=== PATIENT | male | born 1965 | race Caucasian/White ===

== ENCOUNTER 2017-02-27 10:51 | Inpatient (IN) ==
[2017-02-27] MEDS ORDERED: Ketorolac 30 MG/ML VIAL IM STA (11:19)
[2017-02-27] MEDS ORDERED: Orphenadrine 60 MG/2 ML VIAL IM STA (11:19)
[2017-02-27] MEDS ORDERED: cloNIDine HCl 0.1 MG TABLET PO STA (11:20)
--- NOTE | 2017-02-27 11:31 | Emergency Department Note ---
Disposition Clinical Impression: Hypertensive emergency Back pain Qualifiers: Back pain location: back pain in unspecified location Chronicity: chronic Back pain laterality: bilateral Qualified Code(s): M54.9 - Dorsalgia, unspecified; G89.29 - Other chronic pain Disposition: Admitted As Inpatient Condition: Good Back Pain HPI - General Chief Complaint: ED Back Pain/Injury Stated Complaint: HTN/back pain Time Seen by Provider: 02/27/17 11:02 Source: family Limitations: no limitations Nursing Notes Reviewed: Yes Vital Signs Reviewed: Yes - History of Present Illness HPI Narrative: Patient here for evaluation of hypertension and back pain. Patient is a 51-year -old male who has previous history of chronic knee pain and back pain that had been seen by pain management and orthopedic colleagues. Patient quit seeing them approximately a year to year and a half ago secondary to a lapse in insurance. Patient has been having increasing pain since this time. He has not been taking any of his previous medications which include blood pressure medications. He is with who states that he spends most of his day at home and is not able to move or get around secondary to all the pain that he is in area and they recently got insurance and went to get an outpatient workup today where he was found to have a blood pressure over 209. He is severely limited by his pain but has not taken any at home. Medications including any type of Tylenol or NSAIDs. He states these do not work. Quit taking them. He states that he has no history of COPD, heart disease, kidney disease, diabetes or other. At this time they have imaging request from the provider that had transferred the patient and will be resuming more long-term management. At this time we will go ahead and complete these in the emergency department as you will rule out hypertensive emergency and expediate has workup. Back pain is chronic in nature located more in the mid thoracic region. Patient has paraspinal tenderness to the right lower lumbar region. Radiation of pain down into the left leg. Patient denies any changes or abnormal bowel or bladder function. No saddle anesthesia. No fevers. Worse with walking. Better with rest. Patient states that getting up and the amount of movement he has had today will cause him to have to lay in bed for the next several days to recover. - Related Data Home Medications Medication Instructions Recorded Confirmed No Known Home Drugs 02/27/17 02/27/17 Allergies Allergy/AdvReac Type Severity Reaction Status Date / Time No Known Allergies Allergy Verified 09/15/15 09:46 Review of Systems: CONSTITUTIONAL: No weight loss, fever, chills, weakness or fatigue. HEENT: Eyes: No visual changes. Ears, Nose, Throat: No hearing loss, difficulty talking or unable to swallow. SKIN: No rash or itching. CARDIOVASCULAR: Hypertension No chest pain, chest pressure or chest discomfort. No palpitations or edema. RESPIRATORY: No shortness of breath, cough or sputum. GASTROINTESTINAL: No anorexia, nausea, vomiting or diarrhea. No abdominal pain or blood. GENITOURINARY: No burning on urination or hematuria. NEUROLOGICAL: No headache, dizziness, syncope, paralysis, ataxia, numbness or tingling in the extremities. No change in bowel or bladder control. MUSCULOSKELETAL: Back pain, knee pain, elbow pain. Past Medical History - Past Medical History Medical history: Reports: COPD, hypertension, other - Social History Smoking Status: Current every day smoker Alcohol use: Reports: occasionally Drug use: Reports: none Physical Exam General appearance: NAD, conversant Eyes: anicteric sclerae, moist conjunctivae; PERRL HENT: Atraumatic; oropharynx clear with moist mucous membranes and no mucosal ulcerations Neck: Normal inspection; Trachea midline; FROM, supple Lungs: CTA, with normal respiratory effort and no intercostal retractions CV: RRR, no MRGs Abdomen: Soft, non-tender; no rebound or gaurding Extremities: No peripheral edema or extremity lymphadenopathy Skin: Normal temperature; no rash, ulcers or lesions Psych: Appropriate mood and affect Neuro: alert and oriented to person, place and time Musculoskeletal: Significant superficial tenderness to the mid thoracic and lower lumbar paraspinal muscles. Mario sign positive. Patient ambulated to the room. No sensory loss throughout the lower extremities. - General Limitations: no limitations General appearance: alert Course - Reevaluation(s) Reevaluation #1: Patient's troponin elevated. Repeat troponin drawn in order to possibly while the patient to go home. Repeat troponin is higher than the initial troponin. The patient will be admitted for hypertensive emergency. - Consultations Consultation #1: Discussed with Dr. Gross. Patient accepted for admission. Vital Signs Temperature 97.5 F L 02/27/17 10:57 Pulse Rate 100 02/27/17 10:57 Respiratory Rate 20 02/27/17 10:57 Blood Pressure 209/147 02/27/17 10:57 O2 Sat by Pulse Oximetry 95 02/27/17 10:57 Temperature 97.5 F L 02/27/17 10:57 Pulse Rate 79 02/27/17 16:10 Respiratory Rate 18 02/27/17 16:10 Blood Pressure 215/134 02/27/17 16:10 O2 Sat by Pulse Oximetry 96 02/27/17 16:21 Oxygen Delivery Oxygen Delivery Room Air Back Pain/Injury - Medical Records Medical records reviewed: Yes I reviewed the patient's medical records. - Lab Data Lab results reviewed: Yes I reviewed the patient's lab results. Result diagrams: 02/27/17 12:21 02/27/17 12:21 Lab Results 02/27/17 02/27/17 02/27/17 Range/Units 11:27 12:21 12:21 WBC 9.6 (4.3-11.1) K/mcL RBC 6.32 H (4.19-5.50) M/mcL Hgb 20.1 H (12.9-16.9) g/dL Hct 55.9 H (37.5-50.1) % MCV 88.4 (83.0-100.0) fL MCH 31.8 (28.0-33.3) pg MCHC 36.0 H (31.6-35.5) g/dL RDW 13.1 (11.5-14.5) % Plt Count 160 (140-400) K/mcL MPV 11.6 (9.4-12.4) fL Immature Gran % 0.4 (0-4) % Seg Neutrophils % 68.8 % Lymphocytes % 19.9 % Monocytes % 8.7 % Eosinophils % 1.3 % Basophils % 0.9 % Neutrophils # 6.6 (1.6-8.9) K/mcL Lymphocytes # 1.9 (0.6-4.6) K/mcL Monocytes # 0.8 (0.0-1.3) K/mcL Eosinophils # 0.1 (0.0-0.6) K/mcL Basophils # 0.1 (0.0-0.2) K/mcL Immature Plt Fraction 11.6 H (1.1-6.1) % Sodium (136-145) mEq/L Potassium (3.5-4.5) mEq/L Chloride (98-109) mEq/L Carbon Dioxide (19-29) mEq/L BUN (8-26) mg/dL Creatinine (0.72-1.25) mg/dL Est GFR ( Amer) (> 60) Est GFR (Non-Af Amer) (> 60) BUN/Creatinine Ratio (6-26) Glucose (70-99) mg/dL Calculated Osmolality (280-300) Uric Acid (3.5-7.2) mg/dL Calcium (8.6-10.8) mg/dL Total Bilirubin (0.2-1.2) mg/dL AST (5-34) Units/L ALT (0-55) Units/L Alkaline Phosphatase (38-126) Units/L Troponin I (0-0.03) ng/mL Serum Total Protein (6.0-8.3) g/dL Albumin (3.5-5.0) g/dL Globulin (2.4-3.5) g/dL Albumin/Globulin Ratio (1.1-2.2) Triglycerides (< 150) mg/dL Cholesterol (< 200) mg/dL LDL Cholesterol, Calc (0-99) mg/dL VLDL Cholesterol, Calc (< 31) mg/dL HDL Cholesterol (40-59) mg/dL Cholesterol/HDL Ratio (0-4.9) Vitamin B12 (213-816) pg/mL 25-OH Vitamin D Total 9 L (30-80) ng/mL Folate (7.0-31.4) ng/mL TSH (0.350-4.840) mcIU/mL Free T4 (0.70-1.48) ng/dl Urine Color Dark Yellow (Yellow) Urine Clarity Clear (Clear) Urine pH 5.5 (5.0-8.0) pH Units Ur Specific [place] 1.027 H (1.010-1.025) Urine Protein 100 H (Neg-Trace) mg/dL Urine Glucose (UA) Normal (Normal) mg/dL Urine Ketones Negative (Negative) mg/dL Urine Blood Small H (Negative) Urine Nitrite Negative (Negative) Urine Bilirubin Small H (Negative) Urine Urobilinogen Normal (Normal) mg/dL Ur Leukocyte Esterase Trace H (Negative) Urine Microscopic RBC 0-3 (0-3) per hpf Urine Microscopic WBC 3-5 H (0-3) per hpf Ur Squamous Epith Cells Many H (None-Few) per lpf Urine Bacteria None Seen (None-Few) per hpf Ur Culture Indicated? YES A (NO) 02/27/17 02/27/17 02/27/17 Range/Units 12:21 12:21 12:21 WBC (4.3-11.1) K/mcL RBC (4.19-5.50) M/mcL Hgb (12.9-16.9) g/dL Hct (37.5-50.1) % MCV (83.0-100.0) fL MCH (28.0-33.3) pg MCHC (31.6-35.5) g/dL RDW (11.5-14.5) % Plt Count (140-400) K/mcL MPV (9.4-12.4) fL Immature Gran % (0-4) % Seg Neutrophils % % Lymphocytes % % Monocytes % % Eosinophils % % Basophils % % Neutrophils # (1.6-8.9) K/mcL Lymphocytes # (0.6-4.6) K/mcL Monocytes # (0.0-1.3) K/mcL Eosinophils # (0.0-0.6) K/mcL Basophils # (0.0-0.2) K/mcL Immature Plt Fraction (1.1-6.1) % Sodium 137 (136-145) mEq/L Potassium 4.1 (3.5-4.5) mEq/L Chloride 103 (98-109) mEq/L Carbon Dioxide 25 (19-29) mEq/L BUN 16 (8-26) mg/dL Creatinine 1.37 H (0.72-1.25) mg/dL Est GFR ( Amer) > 60 (> 60) Est GFR (Non-Af Amer) 55 L (> 60) BUN/Creatinine Ratio 12 (6-26) Glucose 91 (70-99) mg/dL Calculated Osmolality 285 (280-300) Uric Acid 8.4 H (3.5-7.2) mg/dL Calcium 9.7 (8.6-10.8) mg/dL Total Bilirubin 1.4 H (0.2-1.2) mg/dL AST 27 (5-34) Units/L ALT 36 (0-55) Units/L Alkaline Phosphatase 89 (38-126) Units/L Troponin I 0.04 H* (0-0.03) ng/mL Serum Total Protein 7.7 (6.0-8.3) g/dL Albumin 4.1 (3.5-5.0) g/dL Globulin 3.6 H (2.4-3.5) g/dL Albumin/Globulin Ratio 1.1 (1.1-2.2) Triglycerides 184 H (< 150) mg/dL Cholesterol 232 H (< 200) mg/dL LDL Cholesterol, Calc 149 H (0-99) mg/dL VLDL Cholesterol, Calc 37 H (< 31) mg/dL HDL Cholesterol 46 (40-59) mg/dL Cholesterol/HDL Ratio 5.0 H (0-4.9) Vitamin B12 319 (213-816) pg/mL 25-OH Vitamin D Total (30-80) ng/mL Folate 7.6 (7.0-31.4) ng/mL TSH 1.423 (0.350-4.840) mcIU/mL Free T4 0.84 (0.70-1.48) ng/dl Urine Color (Yellow) Urine Clarity (Clear) Urine pH (5.0-8.0) pH Units Ur Specific [place] (1.010-1.025) Urine Protein (Neg-Trace) mg/dL Urine Glucose (UA) (Normal) mg/dL Urine Ketones (Negative) mg/dL Urine Blood (Negative) Urine Nitrite (Negative) Urine Bilirubin (Negative) Urine Urobilinogen (Normal) mg/dL Ur Leukocyte Esterase (Negative) Urine Microscopic RBC (0-3) per hpf Urine Microscopic WBC (0-3) per hpf Ur Squamous Epith Cells (None-Few) per lpf Urine Bacteria (None-Few) per hpf Ur Culture Indicated? (NO) 02/27/17 Range/Units 14:23 WBC (4.3-11.1) K/mcL RBC (4.19-5.50) M/mcL Hgb (12.9-16.9) g/dL Hct (37.5-50.1) % MCV (83.0-100.0) fL MCH (28.0-33.3) pg MCHC (31.6-35.5) g/dL RDW (11.5-14.5) % Plt Count (140-400) K/mcL MPV (9.4-12.4) fL Immature Gran % (0-4) % Seg Neutrophils % % Lymphocytes % % Monocytes % % Eosinophils % % Basophils % % Neutrophils # (1.6-8.9) K/mcL Lymphocytes # (0.6-4.6) K/mcL Monocytes # (0.0-1.3) K/mcL Eosinophils # (0.0-0.6) K/mcL Basophils # (0.0-0.2) K/mcL Immature Plt Fraction (1.1-6.1) % Sodium (136-145) mEq/L Potassium (3.5-4.5) mEq/L Chloride (98-109) mEq/L Carbon Dioxide (19-29) mEq/L BUN (8-26) mg/dL Creatinine (0.72-1.25) mg/dL Est GFR ( Amer) (> 60) Est GFR (Non-Af Amer) (> 60) BUN/Creatinine Ratio (6-26) Glucose (70-99) mg/dL Calculated Osmolality (280-300) Uric Acid (3.5-7.2) mg/dL Calcium (8.6-10.8) mg/dL Total Bilirubin (0.2-1.2) mg/dL AST (5-34) Units/L ALT (0-55) Units/L Alkaline Phosphatase (38-126) Units/L Troponin I 0.05 H* (0-0.03) ng/mL Serum Total Protein (6.0-8.3) g/dL Albumin (3.5-5.0) g/dL Globulin (2.4-3.5) g/dL Albumin/Globulin Ratio (1.1-2.2) Triglycerides (< 150) mg/dL Cholesterol (< 200) mg/dL LDL Cholesterol, Calc (0-99) mg/dL VLDL Cholesterol, Calc (< 31) mg/dL HDL Cholesterol (40-59) mg/dL Cholesterol/HDL Ratio (0-4.9) Vitamin B12 (213-816) pg/mL 25-OH Vitamin D Total (30-80) ng/mL Folate (7.0-31.4) ng/mL TSH (0.350-4.840) mcIU/mL Free T4 (0.70-1.48) ng/dl Urine Color (Yellow) Urine Clarity (Clear) Urine pH (5.0-8.0) pH Units Ur Specific [place] (1.010-1.025) Urine Protein (Neg-Trace) mg/dL Urine Glucose (UA) (Normal) mg/dL Urine Ketones (Negative) mg/dL Urine Blood (Negative) Urine Nitrite (Negative) Urine Bilirubin (Negative) Urine Urobilinogen (Normal) mg/dL Ur Leukocyte Esterase (Negative) Urine Microscopic RBC (0-3) per hpf Urine Microscopic WBC (0-3) per hpf Ur Squamous Epith Cells (None-Few) per lpf Urine Bacteria (None-Few) per hpf Ur Culture Indicated? (NO) - Radiology Data Radiology results reviewed: Yes I reviewed the patient's radiology results. - EKG Data EKG attestation: Yes I reviewed and interpreted this EKG. EKG results narrative: EKG shows sinus rhythm with ventricular rate of 90 bpm. NJ 180. Peak QRS 102. QTC 412. Patient has no significant ST elevations or depressions. Patient does have some T-wave changes to the anterior lateral leads. No previous EKG for comparison.
--- NOTE | 2017-02-27 11:36 | Emergency Department Note ---
START Narrative - START START: I examined this patient and my medical decision-making was reviewed with the TRIALS MANAGER/PA/Advanced Practice Nurse/Resident Physician. I agree with the documented findings, disposition and treatment plan as described except to the extent set forth below.
[2017-02-27 11:44] LABS: Bilirubin,Urine Small (Negative); Blood,Urine Small (Negative); Clarity,Urine Clear (Clear); Color,Urine Dark Yellow (Yellow); Glucose,Urine (UA) Normal (Normal); Ketones,Urine Negative (Negative); Leukocyte Esterase,Urine Trace (Negative); Nitrite,Urine Negative (Negative); PH,Urine 5.5 pH Units (5.0-8.0); Protein,Urine 100 mg/dL (Neg-Trace); Specific Gravity,Urine 1.027 (1.010-1.025); Urobilinogen,Urine Normal (Normal)
[2017-02-27 11:48] LABS: Bacteria,Urine None Seen per hpf (None-Few); RBC,Urine 0-3 per hpf (0-3); Squamous Epithelial Cell,Urine Many per lpf (None-Few)
[2017-02-27 12:32] LABS: Basophils # 0.1 K/mcL (0.0-0.2); Basophils % 0.9 %; Eosinophils # 0.1 K/mcL (0.0-0.6); Eosinophils % 1.3 %; Hemoglobin 20.1 g/dL (12.9-16.9); Immature Granulocytes % 0.4 % (0-4); Immature Platelets 11.6 % (1.1-6.1); Lymphocytes # 1.9 K/mcL (0.6-4.6); Lymphocytes % 19.9 %; Mean Corpuscular Hemoglobin 31.8 pg (28.0-33.3); Mean Corpuscular Volume 88.4 fL (83.0-100.0); Mean Platelet Volume 11.6 fL (9.4-12.4); Monocytes # 0.8 K/mcL (0.0-1.3); Monocytes % 8.7 %; Neutrophils # 6.6 K/mcL (1.6-8.9); Platelet Count 160 K/mcL (140-400); Red Blood Count 6.32 M/mcL (4.19-5.50); Red Cell Distribution Width 13.1 % (11.5-14.5); Segmented Neutrophils % 68.8 %
[2017-02-27 12:33] LABS: Hematocrit 55.9 % (37.5-50.1)
[2017-02-27 12:47] LABS: Alanine Aminotransferase 36 Units/L (0-55); Albumin 4.1 g/dL (3.5-5.0); Albumin/Globulin Ratio 1.1 (1.1-2.2); Alkaline Phosphatase 89 Units/L (38-126); Aspartate Amino Transferase 27 Units/L (5-34); BUN/Creatinine Ratio 12 (6-26); Bilirubin,Total 1.4 mg/dL (0.2-1.2); Blood Urea Nitrogen 16 mg/dL (8-26); Calcium 9.7 mg/dL (8.6-10.8); Carbon Dioxide 25 mEq/L (19-29); Chloride 103 mEq/L (98-109); Cholesterol 232 mg/dL (< 200); Globulin 3.6 g/dL (2.4-3.5); Glucose 91 mg/dL (70-99); HDL Cholesterol 46 mg/dL (40-59); LDL Cholesterol,Calculated 149 mg/dL (0-99); Osmolality,Calculated 285 (280-300); Potassium 4.1 mEq/L (3.5-4.5); Sodium 137 mEq/L (136-145); Total Protein 7.7 g/dL (6.0-8.3); Triglycerides 184 mg/dL (< 150); Uric Acid 8.4 mg/dL (3.5-7.2); eGFR For African Americans > 60 (> 60); eGFR For Non-African Americans 55 (> 60)
[2017-02-27 13:09] LABS: Thyroid Stimulating Hormone 1.423 mcIU/mL (0.350-4.840)
[2017-02-27] MEDS ORDERED: *HR* OxyCODONE/APAP 5/325 TABLET PO ONE (13:13)
[2017-02-27 13:22] LABS: Folate 7.6 ng/mL (7.0-31.4)
[2017-02-27] MEDS ORDERED: *HR* Labetalol 20 MG/4 ML SYRINGE IVP ONE (15:36)
[2017-02-27] MEDS ORDERED: *HR* HYDROmorphone (PF) 1 MG/ML SYRINGE IVP ONE (15:36)
[2017-02-27] MEDS ORDERED: Ondansetron 4 MG/2 ML VIAL IVP ONE (15:36)
[2017-02-27] MEDS ORDERED: *HR* HYDROmorphone (PF) 1 MG/ML SYRINGE IVP PRN (16:51)
[2017-02-27] MEDS ORDERED: Naloxone 0.4 MG/ML INJ IVP PRN (16:51)
[2017-02-27] MEDS ORDERED: Ondansetron 4 MG/2 ML VIAL IVP PRN (16:51)
[2017-02-27] MEDS ORDERED: Acetaminophen 325 MG TABLET PO PRN (16:51)
--- NOTE | 2017-02-27 16:59 | Internal Med History&Physical ---
Date of Encounter: 02/27/17 Time of Encounter: 16:56 Assessment and Plan (1) Hypertensive emergency Current visit: Yes Status: Acute Presenting BP of 209/147 At time of review BP 197-215/120-129 Patient is diaphoretic, clammy, in severe distress from back pain He received labetalol in the ER with no relief Evidence of ischemia possibly from demand with elevated troponin to 0.05, and ANNAMARIE Patient with EKG changes, unknown if theses are new as no prior EKGs to compare with Started patient on Nicardipine, titrate to SBP<150, DBP <80 Start po meds, and titrate with BP and Nicardipine drip IVF bolus 2L and obtain CT angio-rule out aortic dissection Patient is high risk of cardiopulmonary compromise, worsening renal failure, and He is full code (2) ANNAMARIE (acute kidney injury) Current visit: Yes Status: Acute Patient with no PCP visit for several years Obtain renal USS Give IVF hydration and monitor intake./output anticipate improvement with BP control (3) Elevated troponin Current visit: Yes Status: Acute Possibly from demand EKG with TWI in lateral leads, unknown if new Cycle troponins, give ASA, statin, BB obtain ECHO, Lipid panel Consult cardiology prn (4) Polycythemia Current visit: Yes Status: Acute Patient smkes 1.5 PPD Per his , he always wakes up gasping for air 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 Place patient on O2, give iVF and monitor closely (5) Tobacco abuse Current visit: Yes Status: Chronic Encourage cessation Already on NRT (6) Back pain Current visit: Yes Status: Acute Patient complains of central , thoracic pain, non-radiating, Lumbar CT with mild DJD, continue pain control Rule out aortic emergency Qualifiers: Back pain location: thoracic back pain Chronicity: unspecified Back pain laterality: midline Qualified Code(s): M54.6 - Pain in thoracic spine (7) SCARLET (obstructive sleep apnea) Current visit: Yes Status: Suspected CPAP at night (8) Morbid obesity with BMI of 45.0-49.9, adult Current visit: Yes Status: Chronic Encourage weight loss Internal Medicine - H&P: HPI Chief complaint: "I was sent here by my PCP" Admitted From: Home Plans for Post Hospital Care: Home History of present illness: Mr. Diehl is a 51 year old male seen at bedside with spouse States he was sent tot he ER by his PCP for uncontrolled blood pressure and back pain At my time of review, patient was diaphoretic , complaining of inter- scapular pain, cannot describe it, states it is sharp, non-radiating and 10/10. patient denies chest pain but is severely diaphortic and clammy, HR 88, BP: 197/ 129, O2 Sat ranged from 88-92%. , MAP 151. Patient had been ordered to be started on Nicardipine drip for HTN emergency , awaiting medication administration and bed placement Patient has hx of chronic back pain and HTN, smokes 1.5 packs of cigarette daily and as per his spouse, wakes up every night, gasping for air. He reports he has not had any medications in 3 years because he lost his insurance, he just recently obtained his insurance and decided to visit his PCP due to worsening back pain He denies chest pain at this time but reports he always has chest pain with minimal exertion, he is mostly bed bound when he begins to have the pain He denies fever or chills, no hx of trauma, he has not noticed any changes in his bowel or urinary habits No confusion, or focal weakness, no facial droop or speech deficits Patient was worked up in the ER and presented for admission Work up reveals polycythemia, Hb of 20, ANNAMARIE with Cr of 1.31, Uric acid 8.4, Bilirubinemia of 1.4, Troponin elevated at 0.05 EKG shows T-wave inversions with <1mm ST depression in aVL, V5 and V6. No prior EKGs to compare with Lumbar CT with DJD Patient has no chest X-ray ordered Patient will be admitted to SDU for hypertensive emergency, I will rule out an acute aortic emergency due to uncontrolled BP, hx of Tobacco abuse and severe interscapular pain with diaphoresis. Will give fluid hydration prior to CT angio. Patient is high risk due to Hypertensive emergency with demand ischemia, cannot rule out an [place] at this time, ANNAMARIE with risk of worsening renal failure , risk for cardiopulmonary compromise Past Med Surg Social Fam HX - Past Medical History Medical history: COPD, hypertension, other - Social History Smoking Status: Current every day smoker Alcohol use: occasionally Drug use: none Internal Medicine - H&P: Meds No Known Home Drugs 02/27/17 [History] Allergies No Known Allergies Allergy (Verified 09/15/15 09:46) All Systems PM: A 10-system review of systems was performed and is negative for pertinent findings except as documented above in the HPI. - Constitutional Constitutional: as per HPI - EENT Eyes: as per HPI Ears: as per HPI Nose, mouth and throat: as per HPI - Cardiovascular Cardiovascular ROS IM: as per HPI - Respiratory Respiratory: as per HPI - Gastrointestinal Gastrointestinal: as per HPI - Genitourinary Genitourinary ROS male: as per HPI - Musculoskeletal Musculoskeletal ROS IM: as per HPI - Integumentary Integumentary IM: as per HPI - Neurological Neurological ROS: as per HPI - Hematologic/Lymphatic Hematologic/Lymphatic: as per HPI - Constitutional Vitals: Temp Pulse Resp BP Pulse Ox 97.5 F L 79 18 215/134 96 02/27/17 10:57 02/27/17 16:10 02/27/17 16:10 02/27/17 16:10 02/27/17 16:21 General appearance: Present: disheveled, A&O X 3, morbidly obese, severe distress Exam: Diaphoretic - Head Head exam: Present: atraumatic, normocephalic - Eye Eye exam: Present: PERRL, conjuntiva pink, sclera anicteric Pupils: Present: PERRL - Neck Neck exam general surgery: Present: supple, trachea midline. Absent: lymphadenopathy - Respiratory Respiratory exam: Present: CTAB. Absent: accessory muscle use, rales, rhonchi, wheezes - Cardiovascular Cardiovascular exam: Present: RRR, +S1, +S2. Absent: diastolic murmur, gallop, rubs, systolic murmur - GI/Abdominal GI/Abdominal exam: Present: normal bowel sounds, soft, no peritoneal signs. Absent: distended, tenderness - Extremities Exam Extremities exam: Present: warm, radial pulses palpable and symetrical. Absent : calf tenderness, cyanotic, pedal edema - Back Exam Additional comments: No spine tenderness, equivocal spine tenderness in the thoracic region inbetween the scapular region. - Neurological Exam Neurological exam: Present: alert, CN II-XII intact, oriented X3, no focal deficits. Absent: pronater drift, facial droop, speech deficit - Skin Skin exam: Present: dry, intact Internal Med - H&P Results - Labs CBC & Chem 7: 02/27/17 12:21 02/27/17 12:21
[2017-02-27] MEDS ORDERED: Aspirin 325 MG TABLET PO ONE (18:09)
[2017-02-27] MEDS: niCARdipine 20 MG/200 ML MLS IVC SCH ×2 (18:10→21:14)
[2017-02-27] MEDS: Nicotine 21 MG PATCH.TD24 TD SCH (21:03)
[2017-02-27] MEDS: 0.9 % Sodium Chloride 1,000 ML IVC SCH ×2 (21:16→21:17)
[2017-02-28] MEDS: niCARdipine 20 MG/200 ML MLS IVC SCH (01:39)
[2017-02-28] MEDS ORDERED: *HR* Enoxaparin 30 MG/0.3 ML SYRINGE SQ SCH (06:00)
[2017-02-28 06:16] LABS: Basophils # 0.1 K/mcL (0.0-0.2); Basophils % 0.9 %; Eosinophils # 0.2 K/mcL (0.0-0.6); Eosinophils % 2.1 %; Hematocrit 51.7 % (37.5-50.1); Immature Granulocytes % 0.6 % (0-4); Lymphocytes # 1.9 K/mcL (0.6-4.6); Lymphocytes % 21.5 %; Mean Corpuscular HGB Conc 35.4 g/dL (31.6-35.5); Mean Corpuscular Hemoglobin 31.9 pg (28.0-33.3); Mean Corpuscular Volume 90.1 fL (83.0-100.0); Mean Platelet Volume 11.9 fL (9.4-12.4); Monocytes # 0.8 K/mcL (0.0-1.3); Monocytes % 8.8 %; Neutrophils # 5.8 K/mcL (1.6-8.9); Platelet Count 171 K/mcL (140-400); Red Blood Count 5.74 M/mcL (4.19-5.50); Red Cell Distribution Width 12.8 % (11.5-14.5); Segmented Neutrophils % 66.1 %
[2017-02-28 06:17] LABS: Hemoglobin 18.3 g/dL (12.9-16.9)
[2017-02-28 06:33] LABS: BUN/Creatinine Ratio 14 (6-26); Blood Urea Nitrogen 17 mg/dL (8-26); Calcium 9.5 mg/dL (8.6-10.8); Carbon Dioxide 25 mEq/L (19-29); Chloride 104 mEq/L (98-109); Glucose 105 mg/dL (70-99); Osmolality,Calculated 286 (280-300); Potassium 4.3 mEq/L (3.5-4.5); Sodium 137 mEq/L (136-145); eGFR For African Americans > 60 (> 60); eGFR For Non-African Americans > 60 (> 60)
[2017-02-28] MEDS: Nicotine 21 MG PATCH.TD24 TD SCH (09:28)
[2017-02-28] MEDS: amLODIPine 5 MG TABLET PO SCH (09:28)
[2017-02-28] MEDS: Aspirin Enteric Coated 81 MG Tablet PO SCH (09:29)
[2017-02-28] MEDS: *HR* HYDROcodone/Acet 5/325 mg TABLET PO PRN ×2 (11:06→21:47)
--- NOTE | 2017-02-28 12:02 | Internal Med Progress Note ---
Date of Encounter: 02/28/17 Time of Encounter: 10:15 - Assessment and plan (1) Hypertensive emergency Current Visit: Yes Status: Acute Assessment and plan: BP now better controlled. Off Nicardipine. Likely non-compliance. started on Metoprolol, Amlodipine and Lisinopril (2) ANNAMARIE (acute kidney injury) Current Visit: Yes Status: Acute Assessment and plan: improved (3) Tobacco abuse Current Visit: Yes Status: Chronic Assessment and plan: counselled about cessation, nicotine patch (4) SCARLET (obstructive sleep apnea) Current Visit: Yes Status: Chronic Assessment and plan: continue CPAP (5) Elevated troponin Current Visit: Yes Status: Acute Assessment and plan: troponin trended down (6) Morbid obesity with BMI of 45.0-49.9, adult Current Visit: Yes Status: Chronic Assessment and plan: encourage weight loss - Time Spent With Patient 25 - 35 minutes - Subjective Interval history: Patient awake and alert. Says he feels better. Denies chest pain or shortness of breath. BP is now controlled. Tolerating PO meds. Echo shows LVEF 60%. CTA of chest is negative, except for hepatic steatosis and 10 mm right renal lesion. No fever. No other acute events or complaints. - Constitutional Vitals: Temp Pulse Resp BP Pulse Ox 97.6 F 80 17 119/80 91 02/28/17 04:30 02/28/17 04:30 02/28/17 04:30 02/28/17 05:26 02/28/17 04:30 General appearance: Present: disheveled, A&O X 3, morbidly obese, no acute distress, answers questions appropriately - Head Head exam: Present: atraumatic - Neck Neck exam general surgery: Present: supple - Respiratory Respiratory exam: Present: CTAB. Absent: wheezes - Cardiovascular Cardiovascular exam: Present: RRR, +S1, +S2 - GI/Abdominal GI/Abdominal exam: Present: distended (obese), soft. Absent: guarding - Extremities Exam Extremities exam: Present: radial pulses palpable and symetrical. Absent: cyanotic, pedal edema - Neurological Exam Neurological exam: Present: alert, oriented X3, no focal deficits Internal Medicine: Result - Labs CBC & Chem 7: 02/28/17 06:01 02/28/17 06:01 Labs: Short CBC 02/28/17 Range/Units 06:01 WBC 8.8 (4.3-11.1) K/mcL Hgb 18.3 H D (12.9-16.9) g/dL Hct 51.7 H (37.5-50.1) % Plt Count 171 (140-400) K/mcL Neutrophils # 5.8 (1.6-8.9) K/mcL BMP 02/28/17 06:01 Sodium 137 Potassium 4.3 Chloride 104 Carbon Dioxide 25 BUN 17 Creatinine 1.22 Glucose 105 H Calcium 9.5 Cardiac Enzymes 02/27/17 Range/Units 20:37 Troponin I 0.04 H* (0-0.03) ng/mL Consult Discharge Plan - Plan Referrals: Tana Shook MD [Primary Care Provider] - 03/10/17 9:45 am
[2017-02-28] MEDS: Lisinopril 20 MG TABLET PO SCH (12:58)
[2017-03-01] MEDS ORDERED: *HR* Enoxaparin 40 MG/0.4 ML SYRINGE SQ SCH (06:00)
[2017-03-01 06:23] LABS: Basophils # 0.1 K/mcL (0.0-0.2); Basophils % 1.1 %; Eosinophils # 0.3 K/mcL (0.0-0.6); Eosinophils % 4.1 %; Hematocrit 53.7 % (37.5-50.1); Hemoglobin 18.5 g/dL (12.9-16.9); Immature Granulocytes % 0.4 % (0-4); Lymphocytes # 2.4 K/mcL (0.6-4.6); Lymphocytes % 29.7 %; Mean Corpuscular HGB Conc 34.5 g/dL (31.6-35.5); Mean Corpuscular Hemoglobin 32.2 pg (28.0-33.3); Mean Corpuscular Volume 93.4 fL (83.0-100.0); Mean Platelet Volume 12.1 fL (9.4-12.4); Monocytes # 0.9 K/mcL (0.0-1.3); Monocytes % 10.5 %; Neutrophils # 4.4 K/mcL (1.6-8.9); Platelet Count 154 K/mcL (140-400); Red Blood Count 5.75 M/mcL (4.19-5.50); Red Cell Distribution Width 12.9 % (11.5-14.5); Segmented Neutrophils % 54.2 %
[2017-03-01 07:04] LABS: BUN/Creatinine Ratio 15 (6-26); Blood Urea Nitrogen 23 mg/dL (8-26); Calcium 9.8 mg/dL (8.6-10.8); Carbon Dioxide 25 mEq/L (19-29); Chloride 107 mEq/L (98-109); Glucose 100 mg/dL (70-99); Osmolality,Calculated 300 (280-300); Potassium 3.9 mEq/L (3.5-4.5); Sodium 143 mEq/L (136-145); eGFR For African Americans > 60 (> 60); eGFR For Non-African Americans 50 (> 60)
[2017-03-01] MEDS: Lisinopril 20 MG TABLET PO SCH (07:59)
[2017-03-01] MEDS: amLODIPine 5 MG TABLET PO SCH ×2 (07:59→11:16)
[2017-03-01] MEDS: Nicotine 21 MG PATCH.TD24 TD SCH (07:59)
[2017-03-01] MEDS: Aspirin Enteric Coated 81 MG Tablet PO SCH (07:59)
--- NOTE | 2017-03-01 10:09 | Discharge Summary ---
Date of Encounter: 03/01/17 Time of Encounter: 10:05 - Discharge Diagnosis (1) ANNAMARIE (acute kidney injury) Priority: Secondary Status: Acute (2) Back pain Priority: Secondary Status: Acute Qualifiers: Back pain location: thoracic back pain Chronicity: unspecified Back pain laterality: midline Qualified Code(s): M54.6 - Pain in thoracic spine (3) Elevated troponin Priority: Secondary Status: Acute (4) Hypertensive emergency Priority: Primary Status: Acute (5) Polycythemia Priority: Secondary Status: Acute (6) Morbid obesity with BMI of 45.0-49.9, adult Priority: Secondary Status: Chronic (7) Tobacco abuse Priority: Secondary Status: Chronic - Discharge Medications Prescriptions: amLODIPine [Norvasc] 5 mg PO DAILY #14 tablet Metoprolol [Lopressor] 12.5 mg PO BID 14 Days Home Medications: Azopt TID 03/01/17 [History] Bisacodyl [Woman's Laxative] 10 mg PO BID PRN 03/01/17 [History] Divalproex Sodium [Depakote] 125 mg PO DAILY 03/01/17 [History] HYDROcodone/Acet 5/325 mg Q6H PRN 03/01/17 [History] Metoprolol [Lopressor] 12.5 mg PO BID 14 Days 03/01/17 [Rx] Xdfkd-Kqkvrda-Tyfjyvsr Tablet DAILY 03/01/17 [History] Tramadol HCl 50 mg Q6H PRN 03/01/17 [History] Xalatan HS 03/01/17 [History] amLODIPine [Norvasc] 5 mg PO DAILY #14 tablet 03/01/17 [Rx] Allergies/Adverse Reactions: Allergies No Known Allergies Allergy (Verified 09/15/15 09:46) Procedures/tests Complete & Pending: Procedures Performed prior 72 hours Category Date Time Status CT angio abdomen pelvis [CT] Routine Cat Scan 02/27/17 Completed EV echocardiogram Routine Y 02/28/17 07:20 Completed Date of admission: 02/27/17 17:31 Primary care physician: Tana Shook Discharging clinician: Frank Simon Anticipated date of discharge: 03/01/17 - Patient Status Disposition: Home, Self-Care Condition: Good Functional capacity at discharge: independent ambulation Overall status at discharge: patient is back to baseline - Discharge Instructions Follow Up With: Tana Shook MD [Primary Care Provider] - 03/10/17 9:45 am - Diet and Activity Activity: increase activity as tolerated Diet: low salt diet Interval History: Mr. Diehl is a 51 year old male seen at bedside with spouse States he was sent tot he ER by his PCP for uncontrolled blood pressure and back pain At my time of review, patient was diaphoretic , complaining of inter- scapular pain, cannot describe it, states it is sharp, non-radiating and 10/10. patient denies chest pain but is severely diaphortic and clammy, HR 88, BP: 197/ 129, O2 Sat ranged from 88-92%. , MAP 151. Patient had been ordered to be started on Nicardipine drip for HTN emergency , awaiting medication administration and bed placement Patient has hx of chronic back pain and HTN, smokes 1.5 packs of cigarette daily and as per his spouse, wakes up every night, gasping for air. He reports he has not had any medications in 3 years because he lost his insurance, he just recently obtained his insurance and decided to visit his PCP due to worsening back pain He denies chest pain at this time but reports he always has chest pain with minimal exertion, he is mostly bed bound when he begins to have the pain He denies fever or chills, no hx of trauma, he has not noticed any changes in his bowel or urinary habits No confusion, or focal weakness, no facial droop or speech deficits Patient was worked up in the ER and presented for admission Work up reveals polycythemia, Hb of 20, ANNAMARIE with Cr of 1.31, Uric acid 8.4, Bilirubinemia of 1.4, Troponin elevated at 0.05 EKG shows T-wave inversions with <1mm ST depression in aVL, V5 and V6. No prior EKGs to compare with Lumbar CT with DJD Patient has no chest X-ray ordered Patient will be admitted to SDU for hypertensive emergency, I will rule out an acute aortic emergency due to uncontrolled BP, hx of Tobacco abuse and severe interscapular pain with diaphoresis. Will give fluid hydration prior to CT angio. Patient is high risk due to Hypertensive emergency with demand ischemia, cannot rule out an [place] at this time, ANNAMARIE with risk of worsening renal failure , risk for cardiopulmonary compromise Hospital course: Mr. Diehl is a 51 year old male he was admitted due to hypertensive emergency along with mild troponin elevation. He did complain of back pain during this event. The patient has a history of tobacco abuse and has not been following up with primary care physicians prior to his ER visit. He recently had his health insurance back and was sent to the ER by his new primary care doctor. The patient has been stable, his blood pressures have been controlled. We will discharge the patient home today. We will give a prescription for amlodipine 5 mg daily along with beta soumya, metoprolol 12.5 mg twice a day. Additionally , the patient should follow up with his primary care physician for evaluation of her antihypertensive medications additionally he has findings concerning for polycythemia, this should be monitored and evaluated as outpatient. He had some acute kidney injury, I did stop his NAIMA inhibitor. The plan of care was explained to the patient in detail, he expressed understanding. - Time Spent with Patient Total time spent providing and/or coordinating discharge services: - Constitutional Vitals: Temp Pulse Resp BP Pulse Ox 97.6 F 73 14 113/75 96 03/01/17 07:28 03/01/17 07:28 03/01/17 07:28 03/01/17 07:28 03/01/17 07:28 General appearance: Present: disheveled, A&O X 3, morbidly obese, no acute distress, answers questions appropriately - Head Head exam: Present: atraumatic, normocephalic - Eye Eye exam: Present: PERRL, conjuntiva pink, sclera anicteric Pupils: Present: PERRL - Neck Neck exam general surgery: Present: supple, trachea midline. Absent: lymphadenopathy - Respiratory Respiratory exam: Present: CTAB. Absent: accessory muscle use, rales, rhonchi, wheezes - Cardiovascular Cardiovascular exam: Present: RRR, +S1, +S2. Absent: diastolic murmur, gallop, rubs, systolic murmur - GI/Abdominal GI/Abdominal exam: Present: normal bowel sounds, soft, no peritoneal signs. Absent: distended, tenderness - Extremities Exam Extremities exam: Present: warm, radial pulses palpable and symetrical. Absent : calf tenderness, cyanotic, pedal edema - Neurological Exam Neurological exam: Present: CN II-XII intact, oriented X3, no focal deficits. Absent: pronater drift, facial droop, speech deficit - Skin Skin exam: Present: dry, intact
[2017-03-01 11:07] VITALS: BP 158/128
--- NOTE | 2017-03-01 15:30 | Electrocardiograph Report ---
[employer] Test Date: 2017-02-27 Pat Name: Morgan Diehl Department: 102 Room: [facility] Gender: M [employer] Apprentice: Jennifer : 1965 Requested By: Melvin Mondragon Order Number: [id number] Reading MD: Neil Doyle MD Measurements Intervals [place] Rate: 90 P: 43 IA: 180 QRS: 0 QRSD: 102 T: 128 QT: 364 QTc: 412 Interpretive Statements SINUS RHYTHM LEFT ATRIAL ENLARGEMENT [-0.15mV P WAVE IN V1/V2] INCOMPLETE RIGHT BUNDLE BRANCH BLOCK [90+ ms QRS DURATION, TERMINAL R IN V1/V2, 40+ ms S IN I/aVL/V4/V5/V6] ST DEVIATION AND MODERATE T-WAVE ABNORMALITY, CONSIDER LATERAL ISCHEMIA [-0.1+ mV T WAVE IN I/aVL/V5/V6] Electronically Signed On 03-01-2017 15:28:21 EDT by Neil Doyle MD
== END 2017-03-01 12:02 | disposition home or self-care (01) | DRG 305 ==
LOC: 3BNU 10:51 → EMEROO 10:51 → 2NNU 17:30 → 3NENU 02-28 18:51
PROVIDERS: ADMIT Hospitalist; ATTEND Nurse Practitioner Family